=== PATIENT | male | born 1960 ===

== ENCOUNTER 2018-01-13 15:26 | Inpatient (IN) ==
[~2018-01-13 15:26] MED LIST: LIDOCAINE 100 MG/5 ML SYRINGE ONE; PROPOFOL 200 MG/20 ML VIAL IV ONE
[2018-01-13] MEDS ORDERED: ONDANSETRON 4 MG/2 ML VIAL IV PRN (18:01)
[2018-01-13] MEDS ORDERED: MORPHINE 4 MG/1 ML VIAL IV PRN (18:01)
[2018-01-13] MEDS ORDERED: SODIUM CHLORIDE 0.9% 1,000 ML IV PRN (18:04)
[2018-01-13] MEDS ORDERED: LORazepam 2 MG/1 ML VIAL IV PRN (18:05)
[2018-01-13] MEDS: SODIUM CHLORIDE 0.9% 1,000 ML IV SCH (18:25)
[2018-01-13 18:50] LABS: Basophils % 0.1 % (0.0-0.8); Immature Granulocytes % 0.5 %; Immature Granulocytes Absolute 0.05 #; Lymphocytes # 1.4 10*3/uL (1.4-4.0); Lymphocytes % 15.8 % (21.2-54.2); Mean Corpuscular HGB Conc 32.6 GM/DL (32-36); Mean Corpuscular Hemoglobin 31 PG (27-34); Mean Corpuscular Volume 95.5 FL (87-102); Mean Platelet Volume 9.9 FL (9.6-12.0); Monocytes # 0.3 10*3/uL (0.11-0.8); Monocytes % 3.3 % (1.7-12.7); Neutrophils # 7.3 10*3/uL (1.4-7.4); Neutrophils % 80.3 % (38.7-73.9); Platelet Count 142 T/CUMM (130-400); Red Blood Count 1.99 MC/CUMM (3.8-5.5); Red Cell Distribution Width 13.4 % (9.3-17.3); White Blood Count 9.1 T/CUMM (4-12)
[2018-01-13 18:52] LABS: Hemoglobin 6.2 GM/DL (14.0-18.0)
[2018-01-13 19:21] LABS: Folate 16.3 NG/ML (5.4-24.0); Vitamin B12 166 PG/ML (211-911)
[2018-01-13 19:46] LABS: Sedimentation Rate-Westergren 6 MM/HR (0-20)
[2018-01-13] MEDS: PANTOPRAZOLE INJ 200 MG in SODIUM CHLORIDE 0.9% 250 ML IV SCH (20:04)
[2018-01-14 01:03] LABS: Hematocrit 19.4 VOL% (42.0-52.0); Hemoglobin 6.5 GM/DL (14.0-18.0)
[2018-01-14 01:26] LABS: Calcium 7.3 MG/DL (8.5-10.1); Osmolality,Calculated 278.5 MOS/KG (273-304); Potassium 3.9 MMOL/L (3.5-5.1)
[2018-01-14] MEDS: SODIUM CHLORIDE 0.9% 1,000 ML IV SCH ×3 (02:18→18:52)
[2018-01-14 08:18] LABS: Hemoglobin 9.5 GM/DL (14.0-18.0)
[2018-01-14 09:23] LABS: Hemoglobin A1 (Alkaline) 97.3 % (96.5-98.5); Hemoglobin A2 (Alkaline) 2.7 % (1.5-3.5)
[2018-01-14] MEDS: MULTIVITAMIN (CENTRUM) TABLET PO SCH (09:50)
[2018-01-14] MEDS: THIAMINE 200 MG/2 ML VIAL IV SCH (09:51)
[2018-01-14] MEDS: NICOTINE 14 MG/24 HR PATCH TRANSDERM SCH (09:55)
[2018-01-14] MEDS: CYANOCOBALAMIN 1000 MCG/1 ML VIAL IM SCH (10:36)
[2018-01-14] MEDS ORDERED: CALCIUM GLUCONATE 1,000 MG in SODIUM CHLORIDE 0.9% 100 ML IV ONE (11:00)
[2018-01-14] MEDS: cefTRIAXone 1,000 MG in SYRINGE 1 EACH IV SCH (14:20)
[2018-01-14 14:23] LABS: Hepatitis A Ab IgM Quant 0.02 Index; Hepatitis A Ab IgM Result Negative (Negative); Hepatitis B Core IgM Quant 0.18 Index; Hepatitis B Core IgM Result Negative (Negative); Hepatitis B Surface Ag Quant < 0.10 Index; Hepatitis B Surface Ag Result Negative (Negative); Hepatitis C Virus Ab Quant 0.08 Index; Hepatitis C Virus Ab Result Negative (Negative)
[2018-01-14 15:06] LABS: Hematocrit 31.3 VOL% (42.0-52.0); Hemoglobin 10.7 GM/DL (14.0-18.0)
[2018-01-14] MEDS: OCTREOTIDE 500 MCG in SODIUM CHLORIDE 0.9% 100 ML IV SCH (15:42)
[2018-01-14] MEDS: PANTOPRAZOLE INJ 200 MG in SODIUM CHLORIDE 0.9% 250 ML IV SCH (21:48)
[2018-01-14 23:37] LABS: Hematocrit 27.5 VOL% (42.0-52.0); Hemoglobin 9.4 GM/DL (14.0-18.0)
[2018-01-15] MEDS: SODIUM CHLORIDE 0.9% 1,000 ML IV SCH ×4 (01:10→18:50)
[2018-01-15 03:45] LABS: Basophils % 0.5 % (0.0-0.8); Eosinophils # 0.1 10*3/uL (0.0-0.87); Eosinophils % 0.9 % (0.00-10.9); Hematocrit 29.7 VOL% (42.0-52.0); Hemoglobin 9.7 GM/DL (14.0-18.0); Immature Granulocytes % 0.3 %; Immature Granulocytes Absolute 0.02 #; Lymphocytes # 1.8 10*3/uL (1.4-4.0); Lymphocytes % 31.3 % (21.2-54.2); Mean Corpuscular HGB Conc 32.7 GM/DL (32-36); Mean Corpuscular Hemoglobin 30 PG (27-34); Mean Corpuscular Volume 90.3 FL (87-102); Mean Platelet Volume 10.8 FL (9.6-12.0); Monocytes # 0.3 10*3/uL (0.11-0.8); Monocytes % 5.2 % (1.7-12.7); Neutrophils # 3.5 10*3/uL (1.4-7.4); Neutrophils % 61.8 % (38.7-73.9); Platelet Count 109 T/CUMM (130-400); Red Blood Count 3.29 MC/CUMM (3.8-5.5); Red Cell Distribution Width 14.9 % (9.3-17.3); White Blood Count 5.7 T/CUMM (4-12)
[2018-01-15 04:00] LABS: Calcium 7.4 MG/DL (8.5-10.1); Osmolality,Calculated 277.3 MOS/KG (273-304); Potassium 3.8 MMOL/L (3.5-5.1)
[2018-01-15 07:44] LABS: Hematocrit 30.1 VOL% (42.0-52.0); Hemoglobin 10.1 GM/DL (14.0-18.0)
[2018-01-15] MEDS ORDERED: INFLUENZA VIRUS VACCINE 0.5 ML SYRINGE IM ONE (09:00)
[2018-01-15] MEDS: MULTIVITAMIN (CENTRUM) TABLET PO SCH (09:49)
[2018-01-15] MEDS: CYANOCOBALAMIN 1000 MCG/1 ML VIAL IM SCH (09:52)
[2018-01-15] MEDS: THIAMINE 200 MG/2 ML VIAL IV SCH (09:52)
[2018-01-15] MEDS: NICOTINE 14 MG/24 HR PATCH TRANSDERM SCH (09:54)
[2018-01-15] MEDS: SUCRALFATE 1 GM/10 ML UDCUP PO SCH ×3 (11:58→20:35)
[2018-01-15] MEDS: cefTRIAXone 1,000 MG in SYRINGE 1 EACH IV SCH (12:02)
[2018-01-15] MEDS: OCTREOTIDE 500 MCG in SODIUM CHLORIDE 0.9% 100 ML IV SCH (13:16)
[2018-01-15] MEDS: PANTOPRAZOLE 40 MG TABLET PO SCH (20:35)
[2018-01-16] MEDS: SODIUM CHLORIDE 0.9% 1,000 ML IV SCH ×3 (02:50→22:13)
[2018-01-16 04:26] LABS: Basophils % 0.6 % (0.0-0.8); Eosinophils # 0.2 10*3/uL (0.0-0.87); Eosinophils % 2.2 % (0.00-10.9); Hematocrit 28.1 VOL% (42.0-52.0); Hemoglobin 9.5 GM/DL (14.0-18.0); Immature Granulocytes % 0.3 %; Immature Granulocytes Absolute 0.02 #; Lymphocytes # 1.4 10*3/uL (1.4-4.0); Lymphocytes % 20.2 % (21.2-54.2); Mean Corpuscular HGB Conc 33.8 GM/DL (32-36); Mean Corpuscular Hemoglobin 29 PG (27-34); Mean Platelet Volume 10.4 FL (9.6-12.0); Monocytes # 0.4 10*3/uL (0.11-0.8); Monocytes % 5.3 % (1.7-12.7); Neutrophils # 4.9 10*3/uL (1.4-7.4); Neutrophils % 71.4 % (38.7-73.9); Platelet Count 140 T/CUMM (130-400); Red Blood Count 3.23 MC/CUMM (3.8-5.5); Red Cell Distribution Width 14.4 % (9.3-17.3); White Blood Count 6.8 T/CUMM (4-12)
[2018-01-16] MEDS: SUCRALFATE 1 GM/10 ML UDCUP PO SCH ×4 (06:51→21:41)
[2018-01-16] MEDS: PANTOPRAZOLE 40 MG TABLET PO SCH ×2 (09:29→21:41)
[2018-01-16] MEDS: MULTIVITAMIN (CENTRUM) TABLET PO SCH (09:29)
[2018-01-16] MEDS: CYANOCOBALAMIN 1000 MCG/1 ML VIAL IM SCH (09:30)
[2018-01-16] MEDS: NICOTINE 14 MG/24 HR PATCH TRANSDERM SCH (09:30)
[2018-01-16] MEDS: THIAMINE 200 MG/2 ML VIAL IV SCH (09:30)
[2018-01-16] MEDS ORDERED: PANTOPRAZOLE 40 MG VIAL IV SCH (21:00)
[2018-01-17] MEDS: SODIUM CHLORIDE 0.9% 1,000 ML IV SCH ×2 (05:59→15:06)
[2018-01-17] MEDS: SUCRALFATE 1 GM/10 ML UDCUP PO SCH ×5 (07:14→21:00)
[2018-01-17] MEDS: PANTOPRAZOLE 40 MG TABLET PO SCH ×2 (08:54→21:00)
[2018-01-17] MEDS: NICOTINE 14 MG/24 HR PATCH TRANSDERM SCH (08:54)
[2018-01-17] MEDS: MULTIVITAMIN (CENTRUM) TABLET PO SCH (08:54)
[2018-01-17] MEDS: THIAMINE 200 MG/2 ML VIAL IV SCH (08:54)
[2018-01-17] MEDS: CYANOCOBALAMIN 1000 MCG/1 ML VIAL IM SCH (09:01)
[2018-01-17 10:01] LABS: Basophils % 0.3 % (0.0-0.8); Eosinophils # 0.1 10*3/uL (0.0-0.87); Eosinophils % 2.2 % (0.00-10.9); Hematocrit 31.5 VOL% (42.0-52.0); Hemoglobin 10.7 GM/DL (14.0-18.0); Immature Granulocytes % 0.3 %; Immature Granulocytes Absolute 0.02 #; Lymphocytes # 1.3 10*3/uL (1.4-4.0); Lymphocytes % 20.9 % (21.2-54.2); Mean Corpuscular Hemoglobin 30 PG (27-34); Mean Corpuscular Volume 88.5 FL (87-102); Mean Platelet Volume 10.6 FL (9.6-12.0); Monocytes # 0.4 10*3/uL (0.11-0.8); Monocytes % 6.5 % (1.7-12.7); Neutrophils # 4.2 10*3/uL (1.4-7.4); Neutrophils % 69.8 % (38.7-73.9); Platelet Count 193 T/CUMM (130-400); Red Blood Count 3.56 MC/CUMM (3.8-5.5); Red Cell Distribution Width 14.1 % (9.3-17.3)
[2018-01-17 10:34] LABS: Calcium 8.2 MG/DL (8.5-10.1); Potassium 3.2 MMOL/L (3.5-5.1)
[2018-01-17] MEDS ORDERED: POTASSIUM CHLORIDE 20 MEQ TABLET PO PRN (14:55)
[2018-01-18] MEDS: SODIUM CHLORIDE 0.9% 1,000 ML IV SCH ×3 (01:37→10:02)
[2018-01-18 05:12] LABS: Basophils % 0.6 % (0.0-0.8); Eosinophils # 0.3 10*3/uL (0.0-0.87); Eosinophils % 4.8 % (0.00-10.9); Hematocrit 28.8 VOL% (42.0-52.0); Hemoglobin 9.6 GM/DL (14.0-18.0); Immature Granulocytes % 0.6 %; Immature Granulocytes Absolute 0.03 #; Lymphocytes # 1.4 10*3/uL (1.4-4.0); Lymphocytes % 25.6 % (21.2-54.2); Mean Corpuscular HGB Conc 33.3 GM/DL (32-36); Mean Corpuscular Hemoglobin 29 PG (27-34); Mean Corpuscular Volume 88.3 FL (87-102); Mean Platelet Volume 10.3 FL (9.6-12.0); Monocytes # 0.5 10*3/uL (0.11-0.8); Monocytes % 8.5 % (1.7-12.7); Neutrophils # 3.2 10*3/uL (1.4-7.4); Neutrophils % 59.9 % (38.7-73.9); Platelet Count 212 T/CUMM (130-400); Red Blood Count 3.26 MC/CUMM (3.8-5.5); Red Cell Distribution Width 14.3 % (9.3-17.3); White Blood Count 5.4 T/CUMM (4-12)
[2018-01-18 05:31] LABS: Calcium 8.1 MG/DL (8.5-10.1); Potassium 3.6 MMOL/L (3.5-5.1)
[2018-01-18] MEDS: SUCRALFATE 1 GM/10 ML UDCUP PO SCH (06:30)
[2018-01-18 07:29] VITALS: BP 128/78
[2018-01-18] MEDS: MULTIVITAMIN (CENTRUM) TABLET PO SCH (08:58)
[2018-01-18] MEDS: PANTOPRAZOLE 40 MG TABLET PO SCH (08:58)
[2018-01-18] MEDS: THIAMINE 200 MG/2 ML VIAL IV SCH (08:59)
[2018-01-18] MEDS: NICOTINE 14 MG/24 HR PATCH TRANSDERM SCH (08:59)
[2018-01-18] MEDS: CYANOCOBALAMIN 1000 MCG/1 ML VIAL IM SCH (09:01)
== END 2018-01-18 12:04 | disposition home or self-care (01) | DRG 377 ==
LOC: N.CC 17:58 → SUATTDRO 17:58 → N.2E 01-15 15:30
PROVIDERS: ADMIT Internal Medicine; ATTEND Internal Medicine